=== PATIENT | female | born 1990 | race Caucasian/White ===

== ENCOUNTER 2024-03-06 23:23 | Inpatient (IN) | payer BC ==
[2024-03-06] MEDS ORDERED: Oxytocin/0.9 % Sodium Chloride 30 UNIT/500 ML BAG IV SCH (23:45)
[2024-03-06] MEDS ORDERED: Lidocaine 1% 50 ML MDV INJECT PRN (23:46)
[2024-03-06] MEDS ORDERED: Tranexamic Acid IN NACL,ISO-OS 1,000 MG in Premix Bag 1 BAG IV PRN (23:46)
[2024-03-06] MEDS ORDERED: Misoprostol 200 MCG Tab PO PRN (23:46)
[2024-03-06] MEDS ORDERED: Carboprost Tromethamine 250 MCG/1 mL Vial IM PRN (23:46)
[2024-03-06] MEDS ORDERED: Sodium Chloride 0.9% 10 ML Syringe FLUSH PRN (23:46)
[2024-03-06] MEDS ORDERED: Water For Irrigation,Sterile 1,000 ML Container IRR PRN (23:46)
[2024-03-06] MEDS ORDERED: Sodium Chloride 0.9% 20 ML SDV IV PRN (23:46)
[2024-03-06] MEDS ORDERED: Sodium Chloride 0.9% 2.5 ML Syringe FLUSH PRN (23:46)
[2024-03-06] MEDS ORDERED: Butorphanol 2 MG/ML SDV IVPUSH PRN (23:46)
[2024-03-06] MEDS ORDERED: Methylergonovine 0.2 MG/1 ML Amp IM PRN (23:46)
[2024-03-06] MEDS ORDERED: fentaNYL 50 MCG/ML SDV IVPUSH PRN (23:52)
[2024-03-07 00:37] LABS: HEMATOCRIT 37.8 % (37.0-47.0); HEMOGLOBIN 12.4 g/dL (12.0-16.0); MEAN CORPUSCULAR HEMOGLOBIN 26.8 pg (28.0-32.0); MEAN CORPUSCULAR HGB CONC 32.8 g/dL (32.0-36.0); MEAN CORPUSCULAR VOLUME 81.6 fL (83.0-99.0); MEAN PLATELET VOLUME 10.7 fL (9.4-12.3); PLATELET COUNT,PLT 264 K/uL (150-400); RED BLOOD CELL COUNT 4.63 M/uL (4.10-5.30); WHITE BLOOD CELL COUNT,WBC 15.45 K/uL (3.9-11.3)
[2024-03-07] MEDS: Lactated Ringers 1,000 ML IV SCH (02:50)
[2024-03-07] MEDS: Ropivacaine HCl/PF 400 MG in Premix Bag 1 BAG EPIDUR SCH (03:07)
[2024-03-07] MEDS ORDERED: ePHEDrine 50 MG/ML SDV IM PRN (03:28)
[2024-03-07] MEDS ORDERED: ePHEDrine 50 MG/ML SDV IVPUSH PRN ×2 (03:28)
[2024-03-07] MEDS ORDERED: Phenylephrine HCl In 0.9% NaCl 1 MG/10 ML Syringe IVPUSH PRN (03:28)
[2024-03-07] MEDS ORDERED: dexmedeTOMIDine HCl 200 MCG/2 ML SDV EPIDUR SCH (03:30)
[2024-03-07] MEDS ORDERED: Terbutaline 1 MG/ML SDV SUBCUT PRN (04:10)
[2024-03-07] MEDS: Oxytocin/0.9 % Sodium Chloride 30 UNIT/500 ML BAG IV SCH (04:25)
[2024-03-07] MEDS: Ondansetron 4 MG/2 ML SDV IVPUSH PRN (06:23)
[2024-03-07] MEDS ORDERED: Docusate Sodium 100 MG Cap PO PRN (09:55)
[2024-03-07] MEDS ORDERED: oxyCODONE 5 MG Tab PO PRN (09:55)
[2024-03-07] MEDS ORDERED: Lanolin 100% Cream 7 GM Tube TOP PRN (09:55)
[2024-03-07 10:22] LABS: PH,UMBILICAL ARTERIAL 7.196 (7.18-7.38); PH,UMBILICAL VENOUS 7.255 (7.25-7.45)
[2024-03-07] MEDS: Acetaminophen 500 MG Tab PO PRN (12:43)
[2024-03-07] MEDS: Ibuprofen 800 MG Tab PO PRN (12:44)
[2024-03-07] MEDS: Witch Hazel Medicated Pads 40/Jar TOP PRN (12:44)
[2024-03-07] MEDS: Benzocaine/Menthol 20%-0.5% Spray 78 GM Cannister TOP PRN (12:45)
[2024-03-07] MEDS: Ropivacaine HCl/PF 200 ML ONE (20:37)
[2024-03-07] MEDS: Phenylephrine HCl In 0.9% NaCl 1 MG/10 ML Syringe ONE (20:37)
[2024-03-07] MEDS: Bupivacaine 0.5% 10 ML SDV INJECT ONE (20:38)
[2024-03-07] MEDS: Bupivacaine 0.5% 10 ML SDV ONE (20:38)
[2024-03-08 06:59] LABS: HEMATOCRIT 38.6 % (37.0-47.0); HEMOGLOBIN 12.4 g/dL (12.0-16.0)
[2024-03-08] MEDS: Levothyroxine 25 MCG Tab PO SCH (07:42)
== END 2024-03-09 12:29 | disposition home or self-care (01) | DRG 560 ==
LOC: MW.OBCHECK 23:23 → MW.OB 23:24 → MW.OBCHECK 23:46 → MW.OB 23:46 → OBSVTOIN 03-07 09:36 → MW.OB 03-07 14:40
PROVIDERS: ADMIT Obstetrics & Gynecology; ATTEND Obstetrics & Gynecology
PROC: 10E0XZZ Delivery of Products of Conception, External Approach (ICD-10-PCS; principal; 2024-03-07)
PROC: 0KQM0ZZ Repair Perineum Muscle, Open Approach (ICD-10-PCS; 2024-03-07)
PROC: 3E0R3BZ Introduction of Anesthetic Agent into Spinal Canal, Percutaneous Approach (ICD-10-PCS; 2024-03-07)
PROC: 00HU33Z Insertion of Infusion Device into Spinal Canal, Percutaneous Approach (ICD-10-PCS; 2024-03-07)
DX: O42.02 Full-term premature rupture of membranes, onset of labor within 24 hours of rupture (principal); Z37.0 Single live birth; O40.3XX0 Polyhydramnios, third trimester, not applicable or unspecified; E66.09 Other obesity due to excess calories; O99.214 Obesity complicating childbirth; O99.284 Endocrine, nutritional and metabolic diseases complicating childbirth; E03.9 Hypothyroidism, unspecified; O77.0 Labor and delivery complicated by meconium in amniotic fluid; O70.1 Second degree perineal laceration during delivery; Z3A.39 39 weeks gestation of pregnancy
CPT/HCPCS: 36415; 59025; 59409; 82803; 85014; 85018; 85027; 86592; 86850; 86900; 86901; A9270-GY; J0665; J2371; J2405; J2590; J2795; J7120